=== PATIENT | female | born 1980 | race Two or more races ===

== ENCOUNTER 2020-04-14 20:36 | Emergency (ER) | payer SELFPAY ==
[~2020-04-14] VITALS: Ht 160 cm; Wt 93.8 kg
[2020-04-14] MEDS ORDERED: SODIUM CHLORIDE 0.9% 1,000ML IVBOLUS ONE (22:00)
[2020-04-14] MEDS ORDERED: DIPHENHYDRAMINE 50 MG/ML, 1ML IVPush ONE (22:00)
[2020-04-14] MEDS ORDERED: PROCHLORPERAZINE 5 MG/ML, 2ML IVPush ONE (22:00)
--- NOTE | 2020-04-14 22:25 | NUR ---
unable to find pt in ED lobby for CT head.
--- NOTE | 2020-04-14 23:33 | NUR ---
FIRST CONTACT WITH YANA
--- NOTE | 2020-04-14 23:38 | NUR ---
PT IN CT
--- NOTE | 2020-04-14 23:39 | NUR ---
CC OF PAIN STARTING FROM HEAD AND GOING DOWN BACK, AND R ABD PAIN X4 DAYS. PT STANDING AND LEANING OVER GURNEY, TEARFUL, COMPLAINING OF PAIN. PT IS LAO SPEAKING. CYROCOM AT BEDSIDE
[2020-04-15] MEDS ORDERED: DIPHENHYDRAMINE 50 MG/ML, 1ML ONE (00:20)
[2020-04-15] MEDS ORDERED: PROCHLORPERAZINE 5 MG/ML, 2ML ONE (00:20)
[2020-04-15] MEDS ORDERED: KETOROLAC 30 MG/1 ML ONE (00:48)
--- NOTE | 2020-04-15 00:53 | NUR ---
PT AMBULATORY TO RESTROOM. PT REPORTS NO RELIEF IN PAIN BUT IS NOW ABLE TO LAY BACK IN [facility] WITH EYE SHUT. MEDICATED PER EMAR
[2020-04-15 00:58] VITALS: BP 112/77
[2020-04-15] MEDS ORDERED: KETOROLAC 30 MG/1 ML IVPush ONE (01:00)
== END 2020-04-15 01:36 | disposition home or self-care (01) ==
LOC: ED 23:45
DX: G44.219 Episodic tension-type headache, not intractable (principal)
CPT/HCPCS: 70450; 96374; 96375; 99284; J0780; J1200; J1885; J7030